=== PATIENT | male | born 1965 | race African-American/Black ===

== ENCOUNTER 2016-05-29 20:56 | Emergency (ER) | payer SELFPAY ==
[~2016-05-29] VITALS: Ht 172.7 cm; Wt 72.6 kg
[2016-05-29 21:02] VITALS: BP 117/81
[2016-05-29] MEDS ORDERED: IBUPROFEN 600 MG TABLET PO ONE ×2 (21:30→22:12)
== END 2016-05-29 22:19 | disposition home or self-care (01) ==
LOC: ER 21:01
DX: S83.91XA Sprain of unspecified site of right knee, initial encounter (principal); V29.3XXA Motorcycle rider (driver) (passenger) injured in unspecified nontraffic accident, initial encounter; Y93.89 Activity, other specified; Y92.413 State road as the place of occurrence of the external cause; Y99.8 Other external cause status
CPT/HCPCS: 73560; 99284; A4606; Z7610